=== PATIENT | female | born 1985 | race Caucasian/White ===

== ENCOUNTER → 2016-10-18 | Outpatient (CLI) | payer MEDICAID ==
--- NOTE | 2016-10-18 18:22 | DX ---
Lumbar Spine, three views History: Chronic pain, left lower extremity radiculopathy, M54.40 Comparison: March 09, 2015 Findings: Lumbar alignment is anatomic. Disk spaces are well maintained. No compression fracture is i dentified. Mineralization is normal. There is no spondylolysis or spondylolisthesis. The SI joints lo ok normal. Prominent fecal material in the colon suggests constipation. Impression: 1. Normal lumbar spine. If radiculopathy persists, despite a period of conservative thera py, the lumbar MRI might be considered, as clinically directed. 2. Possible constipation.
== END ==
LOC: BRMIMAGING 14:50
PROVIDERS: ATTEND Registered Nurse
DX: M54.40 Lumbago with sciatica, unspecified side (principal); G89.29 Other chronic pain
CPT/HCPCS: 72100-PO

== ENCOUNTER → 2017-03-24 | Outpatient (CLI) | payer MEDICAID | LOC: BRMIMAGING 08:34 | PROVIDERS: ATTEND Family Medicine | DX: R10.31 Right lower quadrant pain (principal) | CPT/HCPCS: 76705-PO ==